=== PATIENT | female | born 1995 | race American Indian/Alaskan Native ===

== ENCOUNTER 2025-04-06 00:39 | Emergency (ER) | payer SELFPAY ==
[2025-04-06] MEDS: droPERidol 2.5 MG/ML SDV IVPUSH ONE (00:59)
[2025-04-06 01:05] LABS: BASOPHILS ABSOLUTE AUTO 0.07 K/uL (0.00-0.20); BASOPHILS PERCENT AUTO 1.4 % (0.0-1.0); EOSINOPHILS ABSOLUTE AUTO 0.02 K/uL (0.00-0.45); EOSINOPHILS PERCENT AUTO 0.4 % (0.0-6.0); IMMATURE GRAN ABSOLUTE AUTO 0.01 K/uL (0.00-0.05); IMMATURE GRAN PERCENT AUTO 0.2 % (0.0-0.4); LYMPHOCYTES ABSOLUTE AUTO 2.34 K/uL (1.00-4.80); LYMPHOCYTES PERCENT AUTO 46.0 % (24.0-44.0); MEAN PLATELET VOLUME 8.0 fL (9.4-12.3); MONOCYTES ABSOLUTE AUTO 0.40 K/uL (0.00-0.80); MONOCYTES PERCENT AUTO 7.9 % (0.0-8.0); NEUTROPHILS ABSOLUTE AUTO 2.25 K/uL (1.80-7.70); NEUTROPHILS PERCENT AUTO 44.1 % (41.0-71.0); NRBC ABSOLUTE 0.00 K/uL (0.00-0.02); NRBC PERCENT 0.0 /100WBC (0.0-0.2); PLATELET COUNT,PLT 351 K/uL (150-400); RED BLOOD CELL COUNT 3.68 M/uL (4.10-5.30); WHITE BLOOD CELL COUNT,WBC 5.09 K/uL (3.9-11.3)
[2025-04-06 01:35] LABS: A/G RATIO 0.8 (0.9-1.6); ALANINE AMINOTRANSFERASE,ALT 15.0 IU/L (14-63); ASPARTATE AMNIOTRANSFERASE,AST 15.0 IU/L (15-37); BILIRUBIN TOTAL 0.2 mg/dL (0.2-1.0); BLOOD UREA NITROGEN,BUN 13.0 mg/dL (7.0-18.0); CARBON DIOXIDE,CO2 28.3 mmol/L (21.0-32.0); CHLORIDE,CL 105.0 mmol/L (98-107); CREATININE 0.6 mg/dL (0.6-1.0); EST CRCL DRUG DOSING (CG) 106.88 mL/min; GLUCOSE RANDOM 110.0 mg/dL (74-106); POTASSIUM,K 3.7 mmol/L (3.5-5.1); PROTEIN TOTAL,TP 7.3 g/dL (6.4-8.2); SODIUM,NA 142.0 mmol/L (136-145)
[2025-04-06 01:36] LABS: ESTIMATED GFR 125.0 mL/min (>60); ETHANOL BLOOD MEDICAL 404.0 mg/dL
== END 2025-04-06 02:25 | disposition home or self-care (01) ==
LOC: MW.ED 00:39
DX: K85.20 Alcohol induced acute pancreatitis without necrosis or infection (principal); F10.10 Alcohol abuse, uncomplicated
CPT/HCPCS: 36415; 80053; 80307; 82947; 83690; 85025; 96361; 96374; 99284; J1790; J7030; 99283

== ENCOUNTER 2025-05-01 05:12 | Emergency (ER) | payer SELFPAY ==
[2025-05-01] MEDS: diphenhydrAMINE 50 MG/ML SDV IVPUSH ONE (05:44)
[2025-05-01] MEDS: droPERidol 2.5 MG/ML SDV IVPUSH ONE (05:44)
[2025-05-01] MEDS: Sodium Chloride 0.9% 10 ML Syringe FLUSH PRN (05:47)
[2025-05-01] MEDS: Sodium Chloride 0.9% 2.5 ML Syringe FLUSH PRN (05:48)
[2025-05-01 05:58] LABS: BASOPHILS ABSOLUTE AUTO 0.10 K/uL (0.00-0.20); BASOPHILS PERCENT AUTO 1.8 % (0.0-1.0); EOSINOPHILS ABSOLUTE AUTO 0.05 K/uL (0.00-0.45); EOSINOPHILS PERCENT AUTO 0.9 % (0.0-6.0); IMMATURE GRAN ABSOLUTE AUTO 0.01 K/uL (0.00-0.05); IMMATURE GRAN PERCENT AUTO 0.2 % (0.0-0.4); LYMPHOCYTES ABSOLUTE AUTO 3.34 K/uL (1.00-4.80); LYMPHOCYTES PERCENT AUTO 60.4 % (24.0-44.0); MEAN PLATELET VOLUME 8.2 fL (9.4-12.3); MONOCYTES ABSOLUTE AUTO 0.44 K/uL (0.00-0.80); MONOCYTES PERCENT AUTO 8.0 % (0.0-8.0); NEUTROPHILS ABSOLUTE AUTO 1.59 K/uL (1.80-7.70); NEUTROPHILS PERCENT AUTO 28.7 % (41.0-71.0); NRBC ABSOLUTE 0.00 K/uL (0.00-0.02); NRBC PERCENT 0.0 /100WBC (0.0-0.2); PLATELET COUNT,PLT 401 K/uL (150-400); RED BLOOD CELL COUNT 4.11 M/uL (4.10-5.30); WHITE BLOOD CELL COUNT,WBC 5.53 K/uL (3.9-11.3)
[2025-05-01 06:22] LABS: A/G RATIO 1.0 (0.9-1.6); ALANINE AMINOTRANSFERASE,ALT 20.0 IU/L (14-63); ASPARTATE AMNIOTRANSFERASE,AST 33.0 IU/L (15-37); BILIRUBIN TOTAL 0.3 mg/dL (0.2-1.0); BLOOD UREA NITROGEN,BUN 10.0 mg/dL (7.0-18.0); CARBON DIOXIDE,CO2 27.8 mmol/L (21.0-32.0); CHLORIDE,CL 103.0 mmol/L (98-107); CREATININE 0.6 mg/dL (0.6-1.0); EST CRCL DRUG DOSING (CG) 110.4 mL/min; ETHANOL BLOOD MEDICAL 225.0 mg/dL; GLUCOSE RANDOM 95.0 mg/dL (74-106); POTASSIUM,K 3.6 mmol/L (3.5-5.1); PROTEIN TOTAL,TP 8.4 g/dL (6.4-8.2); SODIUM,NA 142.0 mmol/L (136-145)
[2025-05-01 06:23] LABS: ESTIMATED GFR 125.0 mL/min (>60)
[2025-05-01] MEDS: Iopamidol 755 MG/ML 500 ML Multipack Bottle IVPUSH ONE (06:43)
[2025-05-01 08:12] LABS: APPEARANCE,URINE CLEAR; GLUCOSE,URINE NEGATIVE (NEGATIVE); OCCULT BLOOD,URINE NEGATIVE (NEGATIVE)
[2025-05-01 08:22] LABS: AMPHETAMINES SCREEN, URINE NEGATIVE (CUTOFF=500); BUPRENORPHINE SCREEN,URINE NEGATIVE (CUTOFF=10); METHADONE SCREEN, URINE NEGATIVE (CUTOFF=200); METHAMPHETAMINES SCREEN, URINE NEGATIVE (CUTOFF=500); OXYCODONE SCREEN,URINE NEGATIVE (CUT0FF=100); PCP SCREEN,URINE NEGATIVE (CUTOFF=25); THC SCREEN,URINE 20 NG/ML PRESUMPTIVE POSITIVE (CUTOFF=50)
== END 2025-05-01 08:52 | disposition home or self-care (01) ==
LOC: MW.ED 05:12
DX: R10.12 Left upper quadrant pain (principal); R10.13 Epigastric pain; G89.29 Other chronic pain; R07.81 Pleurodynia; F10.120 Alcohol abuse with intoxication, uncomplicated; R19.7 Diarrhea, unspecified; D64.9 Anemia, unspecified; E10.9 Type 1 diabetes mellitus without complications; Z79.899 Other long term (current) drug therapy; Z75.3 Unavailability and inaccessibility of health-care facilities; Z90.49 Acquired absence of other specified parts of digestive tract; Y90.7 Blood alcohol level of 200-239 mg/100 ml
CPT/HCPCS: 36415; 71260; 74177; 80053; 80305; 80307; 81003; 82947; 83690; 83735; 84703; 85025; 96361; 96374; 99285; J1790; J7030; Q9967; 99283; J1200

== ENCOUNTER 2025-05-31 17:26 | Emergency (ER) | payer SELFPAY ==
[2025-05-31] MEDS: Ondansetron 4 MG/2 ML SDV IVPUSH ONE (17:39)
[2025-05-31 18:16] LABS: MEAN PLATELET VOLUME 8.2 fL (9.4-12.3); NRBC ABSOLUTE 0.00 K/uL (0.00-0.02); NRBC PERCENT 0.0 /100WBC (0.0-0.2); PLATELET COUNT,PLT 286 K/uL (150-400); RED BLOOD CELL COUNT 3.89 M/uL (4.10-5.30); WHITE BLOOD CELL COUNT,WBC 2.87 K/uL (3.9-11.3)
[2025-05-31 18:37] LABS: A/G RATIO 0.9 (0.9-1.6); ALANINE AMINOTRANSFERASE,ALT 25 IU/L (14-63); ASPARTATE AMNIOTRANSFERASE,AST 33 IU/L (15-37); BILIRUBIN TOTAL 0.2 mg/dL (0.2-1.0); BLOOD UREA NITROGEN,BUN 5 mg/dL (7.0-18.0); CARBON DIOXIDE,CO2 27.0 mmol/L (21.0-32.0); CHLORIDE,CL 110 mmol/L (98-107); CREATININE 0.5 mg/dL (0.6-1.0); GLUCOSE RANDOM 94 mg/dL (74-106); POTASSIUM,K 3.5 mmol/L (3.5-5.1); PROTEIN TOTAL,TP 7.2 g/dL (6.4-8.2); SODIUM,NA 146 mmol/L (136-145)
[2025-05-31 18:44] LABS: ESTIMATED GFR 131 mL/min (>60)
[2025-05-31 18:48] LABS: BASOPHILS ABSOLUTE MAN 0.11 K/uL (0.00-0.20); BASOPHILS PERCENT MAN 4 % (0-1); EOSINOPHILS ABSOLUTE MAN 0.06 K/uL (0.00-0.45); EOSINOPHILS PERCENT MAN 2 % (0-6); LYMPHOCYTES ABSOLUTE MAN 1.38 K/uL (1.00-4.80); LYMPHOCYTES PERCENT MAN 48 % (24-44); MONOCYTES ABSOLUTE MAN 0.34 K/uL (0.00-0.80); MONOCYTES PERCENT MAN 12 % (0-8); SEG NEUTROPHILS ABSOLUTE MAN 0.98 K/uL (1.80-7.70); SEG NEUTROPHILS PERCENT MAN 34 % (41-71)
== END 2025-05-31 19:20 | disposition home or self-care (01) ==
LOC: MW.ED 17:26
DX: F10.10 Alcohol abuse, uncomplicated (principal); D64.9 Anemia, unspecified; E10.9 Type 1 diabetes mellitus without complications; Z90.49 Acquired absence of other specified parts of digestive tract
CPT/HCPCS: 36415; 70450; 80053; 83690; 84703; 85025; 96361; 96374; 99285; J2405; J7030; 99283

== ENCOUNTER 2025-07-03 21:32 | Emergency (ER) | payer SELFPAY ==
[2025-07-03 22:26] LABS: BASOPHILS ABSOLUTE AUTO 0.06 K/uL (0.00-0.20); BASOPHILS PERCENT AUTO 1.4 % (0.0-1.0); EOSINOPHILS ABSOLUTE AUTO 0.05 K/uL (0.00-0.45); EOSINOPHILS PERCENT AUTO 1.2 % (0.0-6.0); IMMATURE GRAN ABSOLUTE AUTO 0.01 K/uL (0.00-0.05); IMMATURE GRAN PERCENT AUTO 0.2 % (0.0-0.4); LYMPHOCYTES ABSOLUTE AUTO 1.70 K/uL (1.00-4.80); LYMPHOCYTES PERCENT AUTO 39.4 % (24.0-44.0); MEAN PLATELET VOLUME 8.5 fL (9.4-12.3); MONOCYTES ABSOLUTE AUTO 0.53 K/uL (0.00-0.80); MONOCYTES PERCENT AUTO 12.3 % (0.0-8.0); NEUTROPHILS ABSOLUTE AUTO 1.96 K/uL (1.80-7.70); NEUTROPHILS PERCENT AUTO 45.5 % (41.0-71.0); NRBC ABSOLUTE 0.00 K/uL (0.00-0.02); NRBC PERCENT 0.0 /100WBC (0.0-0.2); PLATELET COUNT,PLT 259 K/uL (150-400); RED BLOOD CELL COUNT 4.18 M/uL (4.10-5.30); WHITE BLOOD CELL COUNT,WBC 4.31 K/uL (3.9-11.3)
[2025-07-03 22:51] LABS: A/G RATIO 1.0 (0.9-1.6); ALANINE AMINOTRANSFERASE,ALT 27.0 IU/L (14-63); ASPARTATE AMNIOTRANSFERASE,AST 46.0 IU/L (15-37); BILIRUBIN TOTAL 0.3 mg/dL (0.2-1.0); BLOOD UREA NITROGEN,BUN 4.0 mg/dL (7.0-18.0); CARBON DIOXIDE,CO2 26.2 mmol/L (21.0-32.0); CHLORIDE,CL 106.0 mmol/L (98-107); CREATININE 0.7 mg/dL (0.6-1.0); EST CRCL DRUG DOSING (CG) 94.63 mL/min; GLUCOSE RANDOM 113.0 mg/dL (74-106); POTASSIUM,K 3.7 mmol/L (3.5-5.1); PROTEIN TOTAL,TP 8.3 g/dL (6.4-8.2); SODIUM,NA 144.0 mmol/L (136-145)
[2025-07-03] MEDS: Diphtheria,Pertussis(Acell),Tetanus Vaccine 0.5 ML Syringe IM ONE (22:52)
[2025-07-03 23:01] LABS: GLUCOSE,URINE NEGATIVE (NEGATIVE); OCCULT BLOOD,URINE TRACE-LYSED (NEGATIVE)
[2025-07-03 23:08] LABS: APPEARANCE,URINE HAZY; EPITHELIAL CELLS,URINE MODERATE (NONE-FEW)
[2025-07-03 23:10] LABS: ESTIMATED GFR 121.0 mL/min (>60); ETHANOL BLOOD MEDICAL 429.0 mg/dL
[2025-07-04] MEDS: Amoxicillin/Clavulanate K 875-125 MG Tab PO ONE (05:39)
[2025-07-04 07:54] LABS: AMPHETAMINES SCREEN, URINE NEGATIVE (CUTOFF=500); BUPRENORPHINE SCREEN,URINE NEGATIVE (CUTOFF=10); METHADONE SCREEN, URINE NEGATIVE (CUTOFF=200); METHAMPHETAMINES SCREEN, URINE NEGATIVE (CUTOFF=500); OXYCODONE SCREEN,URINE NEGATIVE (CUT0FF=100); PCP SCREEN,URINE NEGATIVE (CUTOFF=25); THC SCREEN,URINE 20 NG/ML PRESUMPTIVE POSITIVE (CUTOFF=50)
[2025-07-04] MEDS: Iopamidol 755 Mg/ML 100 ML Bottle IVPUSH ONE (08:29)
[2025-07-04] MEDS: cefTRIAXone 2 GM in Water For Injection, Sterile 20 ML IVPUSH ONE (08:52)
[2025-07-04] MEDS: Ondansetron 4 MG/2 ML SDV IVPUSH ONE ×2 (08:52→10:47)
[2025-07-04] MEDS ORDERED: Naloxone 0.4 MG/ML SDV IVPUSH PRN (09:23)
[2025-07-04] MEDS: fentaNYL 50 MCG/ML SDV IVPUSH ONE ×2 (09:44→11:27)
== END 2025-07-04 11:30 ==
LOC: MW.ED 21:32
DX: S02.40CA Maxillary fracture, right side, initial encounter for closed fracture (principal); S01.511A Laceration without foreign body of lip, initial encounter; M24.89 Other specific joint derangement of other specified joint, not elsewhere classified; M54.2 Cervicalgia; F10.129 Alcohol abuse with intoxication, unspecified; F17.200 Nicotine dependence, unspecified, uncomplicated; Z88.5 Allergy status to narcotic agent; Y90.8 Blood alcohol level of 240 mg/100 ml or more; Z79.899 Other long term (current) drug therapy; Y04.2XXA Assault by strike against or bumped into by another person, initial encounter
CPT/HCPCS: 36415; 70450; 70486; 71045; 71260; 72125; 73130; 74177; 80053; 80305; 80307; 81001; 82550; 84703; 85025; 96361; 96374; 96375; 96376; 99285; A4216; A9270; J0696; J2405; J3010; J7030; Q9967; 99284